=== PATIENT | male | born 1965 | race Caucasian/White ===

== ENCOUNTER 2017-10-28 12:53 | Emergency (ER) | payer OTHER, MEDICAID ==
[~2017-10-28] VITALS: Ht 180.3 cm; Wt 120.7 kg
[2017-10-28 14:25] VITALS: BP 136/103; Ht 180.3 cm; Wt 120.7 kg
== END 2017-10-28 16:17 | disposition home or self-care (01) ==
LOC: ED 12:53
DX: S00.212A Abrasion of left eyelid and periocular area, initial encounter (principal); W18.09XA Striking against other object with subsequent fall, initial encounter; Y93.89 Activity, other specified; Y99.8 Other external cause status; Y92.89 Other specified places as the place of occurrence of the external cause